=== PATIENT | female | born 1940 | race Caucasian/White ===

== ENCOUNTER 2016-05-22 09:48 | Day surgery (SDC) | END 2016-05-22 13:33 | disposition home or self-care (01) | DX: R19.4 Change in bowel habit (principal); K44.9 Diaphragmatic hernia without obstruction or gangrene; K21.9 Gastro-esophageal reflux disease without esophagitis; K31.7 Polyp of stomach and duodenum; K29.60 Other gastritis without bleeding; K64.8 Other hemorrhoids; K63.5 Polyp of colon ==